=== PATIENT | male | born 1980 | race American Indian/Alaskan Native ===

== ENCOUNTER 2017-07-07 01:06 | Emergency (ER) | payer OTHER ==
--- NOTE | 2017-07-07 01:20 | C.PDOC ---
History Of Present Illness Pt ate [employer] and woke up with nausea, vomiting and abdominal pain, No f/c/ Decreased po intake. Dull cramping mid epigastric discomfort Time Seen by Provider: 07/07/17 01:20 Chief Complaint (Nursing): Abdominal Pain History Per: Patient History/Exam Limitations: no limitations Onset/Duration Of Symptoms: Hrs Current Symptoms Are (Timing): Worse Context: Food Severity: Moderate Pain Scale Rating Of: 5 Location Of Pain/Discomfort: Epigastric Radiation Of Pain To:: Back Quality Of Discomfort: Sharp, Cramping Associated Symptoms: Nausea, Vomiting. denies: Fever, Chills Exacerbating Factors: None Alleviating Factors: None Last Bowel Movement: Today Recent travel outside of the [place]: No Additional History Per: Patient Past Medical History Reviewed: Historical Data, Nursing Documentation, Vital Signs Vital Signs: Last Vital Signs Temp 97.6 F 07/07/17 01:13 Pulse 74 07/07/17 01:34 Resp 14 07/07/17 01:34 BP 117/76 07/07/17 01:34 Pulse Ox 98 07/07/17 03:03 Family History: States: No Known Family Hx - Social History Hx Alcohol Use: No Hx Substance Use: No - Immunization History Hx Tetanus Toxoid Vaccination: No Hx Influenza Vaccination: No Hx Pneumococcal Vaccination: No Review Of Systems Constitutional: Negative for: Fever, Chills ENT: Negative for: Throat Pain Cardiovascular: Negative for: Chest Pain Respiratory: Negative for: Shortness of Breath Gastrointestinal: Positive for: Nausea, Vomiting, Abdominal Pain Genitourinary: Negative for: Dysuria Musculoskeletal: Positive for: Back Pain Skin: Negative for: Rash Neurological: Negative for: Weakness Psych: Negative for: Anxiety Physical Exam - Physical Exam Appears: Non-toxic Skin: Warm, Dry Head: Normacephalic Eye(s): bilateral: Normal Inspection Oral Mucosa: Dry Neck: Supple Chest: Symmetrical Cardiovascular: Rhythm Regular Respiratory: No Rales, No Rhonchi, No Wheezing Gastrointestinal/Abdominal: Bowel Sounds (tympanic), Soft, Tenderness ( midepigastric), No Distention, No Guarding, No Rebound Back: No CVA Tenderness Extremity: Normal ROM Extremity: Bilateral: Atraumatic Pulses: Left Dorsalis Pedis: Normal, Right Dorsalis Pedis: Normal Neurological/Psych: Oriented x3, Normal Speech, Normal Cognition Gait: Steady ED Course And Treatment - Laboratory Results Result Diagrams: 07/07/17 01:27 07/07/17 01:27 O2 Sat by Pulse Oximetry: 98 Pulse Ox Interpretation: Normal Reevaluation Time: 06:12 Reassessment Condition: Improved Disposition Counseled Patient/Family Regarding: Studies Performed, Diagnosis, Need For Followup, Rx Given - Disposition Referrals: Skip Pineda MD [Staff Provider] - Disposition: HOME/ ROUTINE Disposition Time: 01:20 Condition: FAIR Prescriptions: Naproxen [Naprosyn] 1 tab PO BID PRN #15 tab PRN Reason: Pain Ondansetron ODT [Zofran ODT] 1 odt PO BID PRN #10 odt PRN Reason: Nausea/Vomiting Tamsulosin [Flomax] 0.4 mg PO DAILY #15 cap Instructions: Renal Colic (ED), Kidney Stones (DC), Acute Nausea and Vomiting ( ED) Forms: [facility] (Swiss) - Clinical Impression Clinical Impression: Abdominal pain, Renal colic on right side, Kidney stone on right side
[2017-07-07] MEDS ORDERED: Sodium Chloride 0.9% 1,000 ML IV ONE ×2 (01:22→04:34)
[2017-07-07 01:30] LABS: BASO # 0.1 K/uL (0.0-0.2); BASO % 0.9 % (0.0-2.0); EOS # 0.1 K/uL (0.0-0.7); EOS % 0.8 % (0.0-4.0); HEMATOCRIT 46.2 % (35.0-51.0); LYMPH # 3.6 K/uL (1.0-4.3); LYMPH % 28.9 % (20.0-40.0); MEAN CORPUSCULAR HEMOGLOBIN 30.6 pg (27.0-31.0); MEAN CORPUSCULAR HGB CONC 33.6 g/dL (33.0-37.0); MEAN PLATELET VOLUME 9.4 fL (7.2-11.7); MONO # 0.9 K/uL (0.0-0.8); RED CELL DISTRIBUTION WIDTH 13.8 % (11.5-14.5); WHITE BLOOD COUNT 12.3 K/uL (4.8-10.8)
[2017-07-07] MEDS ORDERED: Sodium Chloride 0.9% 250 ML IV ONE (01:30)
[2017-07-07 01:36] VITALS: RESP 14
[2017-07-07 01:39] LABS: CHLORIDE 105 mmol/L (98-107); POTASSIUM 3.3 mmol/L (3.6-5.2); SODIUM 139 mmol/L (132-148)
[2017-07-07 01:41] LABS: ALB/GLOB RATIO 1.2 (1.0-2.1); AST/SGOT 37 U/L (17-59); BILIRUBIN,TOTAL 0.6 mg/dL (0.2-1.3); CARBON DIOXIDE 18 mmol/L (22-30); GFR AFRICAN-AMERICAN > 60; TOTAL PROTEIN 8.3 g/dL (6.3-8.3)
[2017-07-07 01:42] LABS: ALKALINE PHOSPHATASE 61 U/L (38-126); ALT/SGPT 42 U/L (21-72); BLOOD UREA NITROGEN 13 mg/dL (9-20); CALCIUM 9.6 mg/dl (8.6-10.4); GLUCOSE,RANDOM 141 mg/dL (75-110)
[2017-07-07] MEDS ORDERED: Iodixanol 320 MG/ML 100 ML BOTTLE IV ONE (04:41)
[2017-07-07 05:28] LABS: RBC URINE 9 /hpf (0-3); URINE BACTERIA RARE (<OCC); URINE BILIRUBIN NEGATIVE (NEGATIVE); URINE BLOOD 3+ (NEGATIVE); URINE COLOR Yellow (YELLOW); URINE GLUCOSE (UA) 1+ mg/dL (Normal); URINE KETONE 1+ mg/dL (NEGATIVE); URINE LEUKOCYTE ESTERASE NEG Leu/uL (Negative); URINE PROTEIN NEGATIVE (NEGATIVE); URINE UROBILINOGEN NORMAL mg/dL (0.2-1.0); WBC URINE 3 /hpf (0-5)
--- NOTE | 2017-07-07 06:10 | CT ---
EXAM: CT Abdomen and Pelvis With Intravenous Contrast EXAM DATE/TIME: 07/07/2017 4:35 AM CLINICAL HISTORY: 37 years old, male; Pain; Abdominal pain; Additional info: Abd pain, vomiting TECHNIQUE: Axial computed tomography images of the abdomen and pelvis with intravenous contrast. All CT scans at this facility use one or more dose reduction techniques, viz.: automated exposure control; ma/kV adjustment per patient size (including targeted exams where dose is matched to indication; i.e. head); or iterative reconstruction technique. Coronal and sagittal reformatted images were created and reviewed. CONTRAST: 100 mL of administered intravenously. COMPARISON: No relevant prior studies available. FINDINGS: Lower thorax: No acute findings. ABDOMEN: Liver: Unremarkable. No mass. Gallbladder and bile ducts: Unremarkable. No calcified stones. No ductal dilation. Pancreas: Unremarkable. No mass. No ductal dilation. Spleen: Unremarkable. No splenomegaly. Adrenals: Unremarkable. No mass. Kidneys and ureters: Mild right hydronephrosis and hydroureter secondary to a 4 mm calculus at ureterovesical junction. Delayed nephrogram and excretion right kidney. Stomach and bowel: Unremarkable. No dilatation of small or large bowel. No mucosal thickening. Appendix: Normal. PELVIS: Bladder: Unremarkable. No mass. Reproductive: Unremarkable as visualized. ABDOMEN and PELVIS: Intraperitoneal space: Unremarkable. No free air. No significant fluid collection. Bones/joints: No acute fracture. Soft tissues: Unremarkable. Vasculature: Unremarkable. No abdominal aortic aneurysm. Lymph nodes: No enlarged lymph nodes. IMPRESSION: Right UVJ calculus with mild hydronephrosis and hydroureter.
[2017-07-07 06:40] VITALS: BP 118/68; PULSE 70; TEMP 97.5; O2SAT 100
== END 2017-07-07 06:40 | disposition home or self-care (01) ==
LOC: C.ER 01:06
DX: N20.0 Calculus of kidney (principal); N23 Unspecified renal colic; R10.9 Unspecified abdominal pain
CPT/HCPCS: 74177; 80053; 81001; 83690; 85025; 96361; 96374; 96375; 96376; 99284; J1885; J2405; J2765; J7040; Q9967